=== PATIENT | female | born 1995 | race Caucasian/White ===

== ENCOUNTER → 2019-07-26 | Outpatient (CLI) | payer OTHER | LOC: LAB 12:36 | PROVIDERS: ATTEND Student in an Organized Health Care Education/Training Program | DX: N71.9 Inflammatory disease of uterus, unspecified (principal); N96 Recurrent pregnancy loss; N91.1 Secondary amenorrhea | CPT/HCPCS: 36415; 81240; 81241; 83036; 84443; 84702; 87070; 87077; 87205 ==

== ENCOUNTER → 2019-09-20 | Outpatient (CLI) | payer BC ==
[2019-09-20 15:51] LABS: ABSOLUTE EOSINOPHILS # (AUTO) 0.1 10^3/uL (0.0-0.6); ABSOLUTE LYMPHOCYTES (AUTO) 2.3 10^3/uL (0.5-4.7); ABSOLUTE MONOCYTES (AUTO) 0.6 10^3/uL (0.1-1.4); ABSOLUTE NEUT (AUTO) 6.6 10^3/uL (1.7-8.2); BASOPHILS % (AUTO) 0.3 % (0-2); EOSINOPHILS % (AUTO) 1.4 % (0-6); HEMATOCRIT 35.4 % (36.0-47.0); HEMOGLOBIN 12.5 g/dL (12.0-15.5); LYMPHOCYTES % (AUTO) 23.9 % (13-45); MEAN CORPUSCULAR HEMOGLOBIN 31.9 pg (27.0-33.4); MEAN CORPUSCULAR HGB CONC 35.3 g/dL (32.0-36.0); MEAN CORPUSCULAR VOLUME 90 fl (80-97); MONOCYTES % (AUTO) 6.2 % (3-13); PLATELET COUNT 239 10^3/uL (150-450); RED BLOOD COUNT 3.92 10^6/uL (3.72-5.28); RED CELL DISTRIBUTION WIDTH 12.8 % (11.5-14.0); SEGMENTED NEUTROPHILS % (AUTO) 68.2 % (42-78); TOTAL CELLS COUNTED % (AUTO) 100 %; WHITE BLOOD COUNT 9.7 10^3/uL (4.0-10.5)
== END ==
LOC: LAB 15:14
PROVIDERS: ATTEND Advanced Practice Midwife
DX: Z34.81 Encounter for supervision of other normal pregnancy, first trimester (principal); Z36.82 Encounter for antenatal screening for nuchal translucency
CPT/HCPCS: 36415; 83020; 84443; 85025; 86592; 86701; 86762; 86803; 86804; 86850; 86900; 86901; 87086; 87340; 88142

== ENCOUNTER 2020-03-01 00:23 | Outpatient (CLI) | payer BC ==
[2020-03-01 00:54] LABS: ABSOLUTE EOSINOPHILS # (AUTO) 0.1 10^3/uL (0.0-0.6); ABSOLUTE LYMPHOCYTES (AUTO) 2.8 10^3/uL (0.5-4.7); ABSOLUTE MONOCYTES (AUTO) 0.9 10^3/uL (0.1-1.4); ABSOLUTE NEUT (AUTO) 11.5 10^3/uL (1.7-8.2); BASOPHILS % (AUTO) 0.2 % (0-2); EOSINOPHILS % (AUTO) 0.7 % (0-6); HEMATOCRIT 37.1 % (36.0-47.0); HEMOGLOBIN 12.8 g/dL (12.0-15.5); LYMPHOCYTES % (AUTO) 18.4 % (13-45); MEAN CORPUSCULAR HEMOGLOBIN 32.6 pg (27.0-33.4); MEAN CORPUSCULAR HGB CONC 34.6 g/dL (32.0-36.0); MEAN CORPUSCULAR VOLUME 94 fl (80-97); MONOCYTES % (AUTO) 6.1 % (3-13); PLATELET COUNT 231 10^3/uL (150-450); RED BLOOD COUNT 3.94 10^6/uL (3.72-5.28); RED CELL DISTRIBUTION WIDTH 13.6 % (11.5-14.0); SEGMENTED NEUTROPHILS % (AUTO) 74.6 % (42-78); TOTAL CELLS COUNTED % (AUTO) 100 %; WHITE BLOOD COUNT 15.4 10^3/uL (4.0-10.5)
[2020-03-01 00:57] LABS: APPEARANCE,URINE CLEAR; BILIRUBIN,URINE NEGATIVE (NEGATIVE); COLOR,URINE COLORLESS; GLUCOSE, URINE NEGATIVE (NEGATIVE); KETONES,URINE NEGATIVE (NEGATIVE); LEUKOCYTE ESTERASE,URINE NEGATIVE (NEGATIVE); NITRITE,URINE NEGATIVE (NEGATIVE); PROTEIN,URINE NEGATIVE (NEGATIVE); URINE SPECIFIC GRAVITY 1.001; UROBILINOGEN,URINE NEGATIVE mg/dL (<2.0)
[2020-03-01 01:18] LABS: ALBUMIN 3.7 g/dL (3.5-5.0); ALKALINE PHOSPHATASE 124 U/L (38-126); ANION GAP 6 (5-19); ASPARTATE AMINO TRANSFERASE 22 U/L (14-36); BILIRUBIN,TOTAL 0.3 mg/dL (0.2-1.3); BLOOD UREA NITROGEN 5 mg/dL (7-20); CALCIUM 9.8 mg/dL (8.4-10.2); CARBON DIOXIDE 24 mmol/L (22-30); CHLORIDE 106 mmol/L (98-107); GLUCOSE 87 mg/dL (75-110); POTASSIUM 3.5 mmol/L (3.6-5.0); TOTAL PROTEIN 6.7 g/dL (6.3-8.2); URIC ACID 3.1 mg/dL (2.5-6.2)
[2020-03-01] MEDS ORDERED: BUTALB/ACETAMINOPHEN/CAFFEINE 1 TAB EACH ONE (01:22)
[2020-03-01] MEDS ORDERED: BUTALB/ACETAMINOPHEN/CAFFEINE 1 TAB EACH PO ONE (02:00)
[2020-03-01 02:04] LABS: UR PRO/CREAT RATIO RESULT 1.7 mg/mg (0.0-0.2); URINE CREATININE 9.8 mg/dL (16-327); URINE PROTEIN 16.6 mg/dL (<12)
--- NOTE | 2020-03-01 02:16 | Non Stress Test Report ---
Non Stress Test Datetime Report Generated by CPN: 03/01/2020 02:16 DEMOGRAPHIC EGA NST: 36.1 INDICATION Indication for Study (NST) Other: labor check MONITORING Monitor Explained: Monitor Explained; Test Explained; Patient Verbalized Understanding Time on Monitor: 03/01/2020 01:45 Time off Monitor: 03/01/2020 02:15 NST Duration: 30 NST INTERVENTIONS NST Interventions: PO Hydration; Reposition Patient Physician Notified NST: Dr. Bower BABY A: [id number] BABY A Movement : Present Contraction Frequency : none FHR Baseline : 125 Accelerations : 15X15 Decelerations : None Variability : Moderate 6-25bpm NST Review: Meets Criteria for Reactive NST NST Review and Verified By : SEBAS Reinoso Results: Reactive NST REPORT Report Trigger: Send Report
[2020-03-01 02:20] LABS: URINE AMPHETAMINES SCREEN NEGATIVE; URINE BARBITURATES SCREEN NEGATIVE; URINE BENZODIAZEPINES SCREEN NEGATIVE; URINE COCAINE SCREEN NEGATIVE; URINE MARIJUANA (THC) SCREEN NEGATIVE; URINE METHADONE SCREEN NEGATIVE; URINE PHENCYCLIDINE SCREEN NEGATIVE
== END 2020-03-01 02:32 | disposition home or self-care (01) ==
LOC: LC 00:23
PROVIDERS: ATTEND Student in an Organized Health Care Education/Training Program
DX: O16.3 Unspecified maternal hypertension, third trimester (principal); Z3A.36 36 weeks gestation of pregnancy
CPT/HCPCS: 36415; 59025; 80053; 80307; 81001; 82570; 83615; 84156; 84550; 85025; J3490

== ENCOUNTER 2020-03-02 08:24 | Outpatient (CLI) | payer BC ==
[2020-03-02 09:08] LABS: ABSOLUTE EOSINOPHILS # (AUTO) 0.1 10^3/uL (0.0-0.6); ABSOLUTE LYMPHOCYTES (AUTO) 1.8 10^3/uL (0.5-4.7); ABSOLUTE MONOCYTES (AUTO) 0.7 10^3/uL (0.1-1.4); BASOPHILS % (AUTO) 0.3 % (0-2); EOSINOPHILS % (AUTO) 0.7 % (0-6); HEMATOCRIT 37.1 % (36.0-47.0); HEMOGLOBIN 13.2 g/dL (12.0-15.5); LYMPHOCYTES % (AUTO) 15.3 % (13-45); MEAN CORPUSCULAR HEMOGLOBIN 32.7 pg (27.0-33.4); MEAN CORPUSCULAR HGB CONC 35.5 g/dL (32.0-36.0); MEAN CORPUSCULAR VOLUME 92 fl (80-97); MONOCYTES % (AUTO) 6.3 % (3-13); PLATELET COUNT 249 10^3/uL (150-450); RED BLOOD COUNT 4.02 10^6/uL (3.72-5.28); RED CELL DISTRIBUTION WIDTH 13.3 % (11.5-14.0); SEGMENTED NEUTROPHILS % (AUTO) 77.4 % (42-78); TOTAL CELLS COUNTED % (AUTO) 100 %; WHITE BLOOD COUNT 11.7 10^3/uL (4.0-10.5)
[2020-03-02 09:09] LABS: AMORPHOUS SEDIMENT,URINE TRACE /HPF; APPEARANCE,URINE CLOUDY; BILIRUBIN,URINE NEGATIVE (NEGATIVE); COLOR,URINE YELLOW; GLUCOSE, URINE NEGATIVE (NEGATIVE); KETONES,URINE NEGATIVE (NEGATIVE); LEUKOCYTE ESTERASE,URINE LARGE (NEGATIVE); NITRITE,URINE NEGATIVE (NEGATIVE); PROTEIN,URINE 30 mg/dL (NEGATIVE); URINE SPECIFIC GRAVITY 1.016; UROBILINOGEN,URINE NEGATIVE mg/dL (<2.0)
[2020-03-02 09:25] LABS: ALBUMIN 3.6 g/dL (3.5-5.0); ALKALINE PHOSPHATASE 134 U/L (38-126); ANION GAP 9 (5-19); ASPARTATE AMINO TRANSFERASE 23 U/L (14-36); BILIRUBIN,TOTAL 0.3 mg/dL (0.2-1.3); BLOOD UREA NITROGEN 6 mg/dL (7-20); CALCIUM 9.3 mg/dL (8.4-10.2); CARBON DIOXIDE 20 mmol/L (22-30); CHLORIDE 106 mmol/L (98-107); GLUCOSE 86 mg/dL (75-110); POTASSIUM 3.8 mmol/L (3.6-5.0); TOTAL PROTEIN 6.6 g/dL (6.3-8.2); URIC ACID 4.5 mg/dL (2.5-6.2)
[2020-03-02 09:26] LABS: 24 HOUR URINE PROTEIN RESULT 685 mg/day (42-225); URINE PROTEIN 15.7 mg/dL (<12)
[2020-03-02 09:30] LABS: URINE AMPHETAMINES SCREEN NEGATIVE; URINE BARBITURATES SCREEN NEGATIVE; URINE BENZODIAZEPINES SCREEN NEGATIVE; URINE COCAINE SCREEN NEGATIVE; URINE MARIJUANA (THC) SCREEN NEGATIVE; URINE METHADONE SCREEN NEGATIVE; URINE PHENCYCLIDINE SCREEN NEGATIVE
[2020-03-02 09:35] LABS: UR PRO/CREAT RATIO RESULT 0.1 mg/mg (0.0-0.2); URINE CREATININE 192.6 mg/dL (16-327); URINE PROTEIN 18.7 mg/dL (<12)
--- NOTE | 2020-03-02 09:50 | Non Stress Test Report ---
Non Stress Test Datetime Report Generated by CPN: 03/02/2020 09:50 DEMOGRAPHIC Test Number: 2 EGA NST: 36.2 MONITORING Monitor Explained: Monitor Explained; Test Explained; Patient Verbalized Understanding Time on Monitor: 03/02/2020 08:36 Time off Monitor: 03/02/2020 09:12 NST Duration: 36 NST INTERVENTIONS NST Interventions: PO Hydration; Reposition Patient Physician Notified NST: Dr. Daley BABY A: [id number] BABY A Movement : Present Contraction Frequency : irregular FHR Baseline : 135 Accelerations : 15X15 Decelerations : None Variability : Moderate 6-25bpm NST Review: Meets Criteria for Reactive NST NST Review and Verified By : TMartin,RN NST Results: Reactive NST REPORT Report Trigger: Send Report
== END 2020-03-02 09:50 | disposition home or self-care (01) ==
LOC: LC 08:24
PROVIDERS: ATTEND Obstetrics & Gynecology Gynecology
DX: O16.3 Unspecified maternal hypertension, third trimester (principal); Z3A.36 36 weeks gestation of pregnancy
CPT/HCPCS: 36415; 59025; 80053; 80307; 81001; 82570; 83615; 84156; 84550; 85025

== ENCOUNTER 2020-03-19 18:06 | Inpatient (IN) | payer BC ==
[2020-03-19] MEDS ORDERED: DINOPROSTONE 10 MG VAGINAL INSERT.SR PV PRN (18:16)
[2020-03-19] MEDS ORDERED: PENICILLIN G POTASSIUM 5,000,000 UNIT in DEXTROSE 5%-WATER 100 ML IV ONE (18:16)
[2020-03-19] MEDS: RINGERS SOLUTION,LACTATED 1,000 ML IV PRN (18:28)
[2020-03-19] MEDS ORDERED: OXYTOCIN 10 UNIT/ML VIAL ONE (18:39)
[2020-03-19] MEDS ORDERED: OXYTOCIN/NORMAL SALINE 20 UNIT/1,000 ML RTUINJ ONE (18:39)
[2020-03-19] MEDS ORDERED: MISOPROSTOL 0.2 MG TABLET ONE (18:39)
[2020-03-19] MEDS ORDERED: LIDOCAINE 1% INJ-PF (10 MG/ML) 30 ML SDV ONE (18:39)
[2020-03-19] MEDS ORDERED: DINOPROSTONE 10 MG VAGINAL INSERT.SR ONE (18:39)
[2020-03-19 19:00] LABS: ABSOLUTE EOSINOPHILS # (AUTO) 0.1 10^3/uL (0.0-0.6); ABSOLUTE MONOCYTES (AUTO) 0.8 10^3/uL (0.1-1.4); ABSOLUTE NEUT (AUTO) 9.7 10^3/uL (1.7-8.2); BASOPHILS % (AUTO) 0.4 % (0-2); EOSINOPHILS % (AUTO) 0.4 % (0-6); HEMATOCRIT 36.7 % (36.0-47.0); HEMOGLOBIN 12.8 g/dL (12.0-15.5); LYMPHOCYTES % (AUTO) 15.9 % (13-45); MEAN CORPUSCULAR HEMOGLOBIN 32.5 pg (27.0-33.4); MEAN CORPUSCULAR HGB CONC 34.8 g/dL (32.0-36.0); MEAN CORPUSCULAR VOLUME 93 fl (80-97); PLATELET COUNT 225 10^3/uL (150-450); RED BLOOD COUNT 3.94 10^6/uL (3.72-5.28); RED CELL DISTRIBUTION WIDTH 13.8 % (11.5-14.0); SEGMENTED NEUTROPHILS % (AUTO) 77.3 % (42-78); TOTAL CELLS COUNTED % (AUTO) 100 %; WHITE BLOOD COUNT 12.6 10^3/uL (4.0-10.5)
[2020-03-19 19:04] LABS: APPEARANCE,URINE SLIGHTLY-CLOUDY; BILIRUBIN,URINE NEGATIVE (NEGATIVE); COLOR,URINE STRAW; GLUCOSE, URINE NEGATIVE (NEGATIVE); KETONES,URINE NEGATIVE (NEGATIVE); LEUKOCYTE ESTERASE,URINE TRACE (NEGATIVE); NITRITE,URINE NEGATIVE (NEGATIVE); PROTEIN,URINE NEGATIVE (NEGATIVE); URINE SPECIFIC GRAVITY 1.003; UROBILINOGEN,URINE NEGATIVE mg/dL (<2.0)
[2020-03-19 19:20] LABS: URINE AMPHETAMINES SCREEN NEGATIVE; URINE BARBITURATES SCREEN NEGATIVE; URINE BENZODIAZEPINES SCREEN NEGATIVE; URINE COCAINE SCREEN NEGATIVE; URINE MARIJUANA (THC) SCREEN NEGATIVE; URINE METHADONE SCREEN NEGATIVE; URINE PHENCYCLIDINE SCREEN NEGATIVE
[2020-03-19] MEDS ORDERED: ACETAMINOPHEN 325 MG TABLET ONE (19:46)
[2020-03-19] MEDS ORDERED: ACETAMINOPHEN 325 MG TABLET PO ONE (19:49)
[2020-03-19] MEDS ORDERED: PENICILLIN G POTASSIUM 2,500,000 UNIT in DEXTROSE 5%-WATER 50 ML IV SCH (22:30)
[2020-03-20] MEDS ORDERED: MISOPROSTOL 0.1 MG TABLET ONE (08:18)
[2020-03-20] MEDS ORDERED: MISOPROSTOL 0.2 MG TABLET PV ONE ×2 (08:19→08:22)
[2020-03-20] MEDS ORDERED: TERBUTALINE SULFATE INJ/PF 1 MG/1 ML SDV ONE (09:28)
[2020-03-20] MEDS ORDERED: TERBUTALINE SULFATE INJ/PF 1 MG/1 ML SDV SUBCUT ONE (09:28)
--- NOTE | 2020-03-20 10:30 | Admission Physical ---
Datetime Report Generated by CPN: 03/20/2020 10:29 CURRENT ADMISSION Hx Assessment: The History has been Reviewed and is Current Chief Complaint: Scheduled Induction of Labor Indication for Induction: IUGR Admit Impression : Term, Intrauterine Admit Plan: Admit to Unit; Initiate Labor Induction Protocol ALLERGIES Medication Allergies: Yes Medication Allergies: Sulfa (Sulfonamide Antibiotics)/SV/Anaphylaxis (03/19/2020) Latex: No Latex Allergies Food Allergies: none Environmental Allergies: none OBSTETRICAL HISTORY EDC: 03/28/2020 00:00 : 3 Para: 0 SAB: 2 Gestational Diabetes: No Rh Sensitization: No Incompetent Cervix: No ELLIOT: No Infertility: No ART Treatment: No Uterine Anomaly: No IUGR: No Hx Previous C/S: No Macrosomia: No Hx Loss/Stillborn: No PIH: No Hx : No Placenta Previa/Abruption: No Depression/PP Depression: No PTL/PROM: No Post Hemorrhage: No Current Procedures: Ultrasound; NST Obstetrical History Comments: G1 - early SAB G2 - early SAB G3 - current; IUGR SEE RECORDS Alcohol: No Marijuana : No Cocaine: No Other Illicit Drugs: No Cigarettes: Never Smoker. [id number] MEDICAL HISTORY Diabetes: No Blood Transfusion: No Pulmonary Disease (Asthma, TB): No Breast Disease: No Hypertension: No Plastic Design Applier Surgery: No Heart Disease: No Hosp/Surgery: Yes Autoimmune Disorder: No Anesthetic Complications: No Kidney Disease: No Abnormal Pap Smear: No Neuro/Epilepsy: No Psychiatric Disorders: No Other Medical Diseases: No Hepatitis/Liver Disease: No Significant Family History: No Varicosities/Phlebitis: No Trauma/Violence : No Thyroid Dysfunction: No Medical History Comments: tonsillectomy, shoulder surgery, wisdom teeth INFECTIOUS HISTORY Gonorrhea: No Genital Herpes: No Chlamydia: No Tuberculosis: No Syphilis: No Hepatitis: No HIV/AIDS Exposure: No Rash or Viral Illness: No HPV: No PHYSICAL EXAM General: Normal Heart: Normal Abdomen: Normal Extremities: Normal Pelvic Type: Adequate Vital Signs: Reviewed; Within Normal Limits MEMBRANES Membranes: Intact FETUS A EGA: 38.6 Monitoring: External US FHR Category: Category I FHR Comments: Cat I this am followed by prolonged decel after cytotec which was resolved with position changes, fluid bolus, oxygen and terbutaline SQ an dnow back to Cat I tracing Presentation: Vertex Admit Comment: 24yo G3PO at 38w6d admitted into L_D last night for IOL secondary to IUGR. Pt is O pos, RI, GBS positive. Medical hx signficant for Heterozygous Factory 5 Leiden with no hx of DVTs for which she is to receive Lovenox for 6weeks . Pt had cervidil last night followed by cytotec this am. Pt with tachysystole after cytotec and so terbutaline was given as stated above. Plan is to continue to monitor, reasses for possible cook's catheter placement at 4hrs from cytotec (1230). Dr. Bower is the OB ribbon sweatband operator and aware of patient status. PLANS FOR LABOR AND DELIVERY Labor and Delivery: Plan Pain Management: Natural Feeding Preference: Breast Circumcision: N/A INFORMED CONSENT Assignment: Mallory Bower MD Signature: with User ID: [email or web address] : with User ID: [email or web address]
[2020-03-20] MEDS: RINGERS SOLUTION,LACTATED 1,000 ML IV PRN (14:15)
[2020-03-20] MEDS ORDERED: PENICILLIN G-K 5 MILLION UNIT VIAL ONE (17:27)
[2020-03-20] MEDS ORDERED: EPHEDRINE SULFATE INJ 50 MG/1 ML AMPULE ONE (17:34)
[2020-03-20] MEDS ORDERED: FENTANYL/BUPIVACAINE/NS/PF 300 MCG/150 ML RTUINJ EPI ONE (17:35)
[2020-03-20] MEDS ORDERED: BUPIVACAINE HCL 0.25 % INJ/PF (2.5 MG/1 ML) 30 ML VIAL ONE (17:35)
--- NOTE | 2020-03-20 20:29 | Warning Signs in Babies ---
VOD Warning Signs Datetime Report Generated by [facility]: 03/20/2020 20:29 VOD#608 -Warning Signs in Babies: Needs to be viewed. (03/01/2020 00:25:Alyssa Coulter RN)
[2020-03-20] MEDS ORDERED: DIBUCAINE 1% OINTMENT 28 GM TP PRN (20:32)
[2020-03-20] MEDS ORDERED: MAGNESIUM HYDROXIDE SUSP 30 ML UDCUP PO PRN (20:32)
[2020-03-20] MEDS ORDERED: PROMETHAZINE HCL 25 MG TABLET PO PRN (20:32)
[2020-03-20] MEDS ORDERED: PROMETHAZINE HCL INJ 25 MG/1 ML VIAL IV PRN (20:32)
[2020-03-20] MEDS ORDERED: ACETAMINOPHEN WITH CODEINE #3 TABLET PO PRN ×2 (20:32)
[2020-03-20] MEDS ORDERED: PROMETHAZINE HCL 25 MG SUPP.RECT PR PRN (20:32)
[2020-03-20] MEDS ORDERED: DIPHENHYDRAMINE HCL 25 MG CAPSULE PO PRN (20:32)
[2020-03-20] MEDS ORDERED: ACETAMINOPHEN 325 MG TABLET PO PRN (20:32)
[2020-03-20] MEDS ORDERED: DIPH/PERTUSS(ACELL)/TETANUS VAC/PF 0.5 ML SYR (>=10YO) IM PRN (20:32)
[2020-03-20] MEDS ORDERED: MEASLES,MUMPS&RUBELLA VACC/PF 0.5 ML VIAL SUBCUT PRN (20:32)
[2020-03-20] MEDS ORDERED: NA PHOS,M-B/NA PHOS,DI-BA (ADULT) 133 ML ENEMA PR PRN (20:32)
[2020-03-20] MEDS ORDERED: BENZOCAINE/MENTHOL AEROSOL SPRAY 56 ML TOP PRN (20:32)
[2020-03-20] MEDS ORDERED: ZOLPIDEM TARTRATE 5 MG TABLET PO PRN (20:32)
[2020-03-20] MEDS ORDERED: PSEUDOEPHEDRINE HCL 30 MG TABLET PO PRN (20:32)
[2020-03-20] MEDS ORDERED: OXYTOCIN/NORMAL SALINE 20 UNIT/1,000 ML RTUINJ IV PRN (20:32)
[2020-03-20] MEDS ORDERED: GLYCERIN/WITCH HAZEL LEAF 1 EACH MED..WIPE TP PRN (20:32)
--- NOTE | 2020-03-20 21:07 | Delivery Summary ---
Del Sum A-C Datetime Report Generated by CPN: 03/20/2020 21:06 DELIVERY PERSONNEL DELIVERY PERSONNEL: [id number] Delivery Doctor:: Mallory Bower MD Labor and Delivery Nurse:: Arely Cruz RNnatural gas trader Nurse:: Unique Chaney RN Nursery Nurse:: Sneha Bailey RN Nursery Nurse:: SEBAS Meraz Tour Production Supervisor/MELT HOUSE CENTRIFUGAL OPERATOR: Ana Griggs CST Tour Production Supervisor/MELT HOUSE CENTRIFUGAL OPERATOR: Geraldine Buorgeois CST Additional Personnel: : Daphney Ortiz RNC MATERNAL INFORMATION Delivery Anesthesia: Epidural Medications After Delivery: Pitocin Drip 20 Units/1000ml NSS Estimated Blood Loss (ml): 50 Delivery QBL: 50 Maternal Complications: None Provider Comments: Repetitive decelerations to 70-80s and c/c/+3. Patient consented for VAVD due to NFHRTs and patient and agreed. Vacuum placed and activated to green zone. Maternal expulsive efforts appropriate and one pop off. Vacuum applied 4 times with only one pop off. baby to +4 and then delivered with patients own maternal efforts. VFI delivered in GONZALO presentation. No nuchal cord. Placenta delivered intact spontaneously. FF at U. 1st degree perineal laceration repaired with good hemostasis. Mother and baby stable upon provider leaving the room. Reviewed again with patient Factor V HZ and discussion with SEMOC dr. Gutiérrez that would recommend Anticoag for 6 weeks pp and due to this c/b IUGR and Factor V HZ would recommend next Anticoag during and pp. Patient verbalized understanding. LABOR SUMMARY EDC: 03/28/2020 00:00 No. Babies in Womb: 1 Attempted: No Labor Anesthesia: Epidural LABOR INFORMATION Reason for Induction: Intrauterine Growth Retardation Onset of Labor: 03/20/2020 11:26 Complete Dilatation: 03/20/2020 18:44 Cervical Ripening Agents: Cervidil; [place] Ball[place]; Cytotec @ Oxytocin: N/A Group B Beta Strep: positive Antibiotics # of Doses: 1 Antibiotics Time of Last Dose: 1732 Name of Antibiotic Given: Penicillin Steroids Given: None Reason Steroids Not Administered: Not Applicable MEMBRANES Membranes Rupture Method: Artificial Rupture of Membranes: 03/20/2020 17:07 Length of Rupture (hr): 2.43 Amniotic Fluid Color: Clear Amniotic Fluid Amount: Copious Amniotic Fluid Odor: None STAGES OF LABOR Stage 1 hr: 7 Stage 1 min: 18 Stage 2 hr: 0 Stage 2 min: 49 Stage 3 hr: 0 Stage 3 min: 5 Total Time in Labor hr: 8 Total Time in Labor min: 12 VAGINAL DELIVERY Episiotomy: None Laceration #1: Perineal Laceration Extension #1: First Degree Laceration Repair: Yes Laceration Repair Note: 1st degree ML perineal laceration repaired with good hemostasis. Sponge Count Correct: Yes Sharps Count Correct: Yes CSECTION DELIVERY Primary Indication: N/A Secondary Indication: N/A CSection Incidence: N/A Labor: N/A Elective: N/A CSection Incision: N/A BABY A INFORMATION Infant Delivery Date/Time: 03/20/2020 19:33 Method of Delivery: Vaginal Nurse Controlled Delivery: No Born in Route : No : N/A Forceps: N/A Vacuum Extraction: N/A Shoulder Dystocia : No PRESENTATION/POSITION BABY A Presentation: Cephalic Cephalic Presentation: Vertex Vertex Position: Left Occipital Anterior Breech Presentation: N/A PLACENTA INFORMATION BABY A Placenta Delivery Time : 03/20/2020 19:38 Placenta Method of Delivery: Spontaneous Placenta Status: Delivered SCORES BABY A Heart Rate 1 min: >100 bpm Resp Effort 1 min: Good Cry Reflex Irritability 1 min: Cough or Sneeze or Pulls Away Muscle Tone 1 min: Some Flexion of Extremities Color 1 min: Blue/Pale SCORE 1 MIN: 7 Heart Rate 5 min: >100 bpm Resp Effort 5 min: Good Cry Reflex Irritability 5 min: Cough or Sneeze or Pulls Away Muscle Tone 5 min: Active Motion Color 5 min: Body [place], Extremities Blue SCORE 5 MIN: 9 INFORMATION BABY A Gestational Age at Delivery: 38.6 Gestational Status: Early Term- 37- 38.6 Weeks Outcome : Liveborn Condition : Stable Infant Sex: Female IDENTIFICATION BABY A Verification Date/Time: 03/20/2020 20:04 ID Band Number: [id number] Mother's Name Verified: Yes RN Verifying Infant: Dian Coulter RN Additional Verifying Personnel: Farideh RN WEIGHT/LENGTH BABY A Infant Birthweight (gm): 2790 Infant Weight (lb): 6 Weight (oz): 2 Length (in): 19.00 Infant Length (cm): 48.26 CORD INFORMATION BABY A No. Cord Vessels: 3 Nuchal Cord : N/A Cord Blood Taken: Yes-For Storage (Mom's Blood type +) Suction: Mouth ASSESSMENT BABY A Skin to Skin: Yes Skin to Skin Time (min): 20 BABY B INFORMATION : N/A SIGNATURES Signature: with User ID: [email or web address]
[2020-03-20] MEDS ORDERED: PENICILLIN G POTASSIUM 2,500,000 UNIT in DEXTROSE 5%-WATER 50 ML IV SCH ×2 (21:30→21:33)
[2020-03-20] MEDS ORDERED: IBUPROFEN 800 MG TABLET ONE (23:04)
[2020-03-20] MEDS: IBUPROFEN 800 MG TABLET PO SCH (23:09)
[2020-03-20] MEDS: FAMOTIDINE 20 MG TABLET PO SCH (23:24)
[2020-03-21] MEDS: IBUPROFEN 800 MG TABLET PO SCH ×3 (05:41→21:31)
[2020-03-21 06:36] LABS: HEMATOCRIT 33.2 % (36.0-47.0); HEMOGLOBIN 11.6 g/dL (12.0-15.5); MEAN CORPUSCULAR HEMOGLOBIN 32.9 pg (27.0-33.4); MEAN CORPUSCULAR VOLUME 94 fl (80-97); PLATELET COUNT 184 10^3/uL (150-450); RED BLOOD COUNT 3.52 10^6/uL (3.72-5.28); RED CELL DISTRIBUTION WIDTH 13.8 % (11.5-14.0); WHITE BLOOD COUNT 17.7 10^3/uL (4.0-10.5)
[2020-03-21] MEDS: SENNOSIDES/DOCUSATE 8.6-50 MG 1 EACH TABLET PO SCH (09:23)
[2020-03-21] MEDS: FAMOTIDINE 20 MG TABLET PO SCH ×2 (09:23→21:31)
[2020-03-21] MEDS: DOCUSATE SODIUM 100 MG CAPSULE PO SCH ×2 (09:23→17:24)
[2020-03-21] MEDS: FERROUS SULFATE 325 MG TABLET PO SCH ×2 (09:23→17:24)
[2020-03-21] MEDS: PRENATAL VITAMIN W DHA CAPSULE PO SCH (09:23)
[2020-03-21] MEDS: ENOXAPARIN SODIUM INJ 40 MG/0.4 ML DISP.SYRIN SUBCUT SCH (09:23)
--- NOTE | 2020-03-21 12:02 | PDOC PROGRESS REPORT ---
Subjective-OB Progress Note for:: 03/21/20 Subjective: doing well, no complaints. She reports light bleeding, reg diet and voiding without difficulty. Physical Exam (OB) Vital Signs: Temp Pulse Resp BP Pulse Ox 97.8 F 54 L 16 116/85 98 03/21/20 07:41 03/21/20 07:41 03/21/20 07:41 03/21/20 07:41 03/21/20 07:41 Intake & Output 03/20/20 03/21/20 03/22/20 06:59 06:59 06:59 Intake Total 1000 400 Balance 1000 400 Weight 79.2 kg - PIH/Pre-Eclampsia DTR's: 1 + Clonus: Negative Headache: Absent Epigastric Pain: No Visual Changes: No - Lochia Lochia Amount: Small 10-25 ml Lochia Color: Rubra/Red - Abdomen Description: Soft, Round Hernia Present: No Fundal Description: Firm, Midline Fundal Height: u/u - u/2 Objective-Diagnostic Laboratory: 03/21/20 06:18 03/21/20 06:18 WBC 17.7 H RBC 3.52 L Hgb 11.6 L Hct 33.2 L MCV 94 MCH 32.9 MCHC 35.0 RDW 13.8 Plt Count 184 Assessment and Plan(PN) - Assessment and Plan (1) Encounter for induction of labor Is this a current diagnosis for this admission?: Yes (2) Heterozygous factor V Leiden affecting in third trimester, antepartum Is this a current diagnosis for this admission?: Yes (3) Vacuum-assisted vaginal delivery Is this a current diagnosis for this admission?: Yes - Time Spent with Patient Time with patient: Less than 15 minutes Medications reviewed and adjusted accordingly: Yes - Disposition Anticipated Discharge: Home Within: within 24 hours
[2020-03-22] MEDS: IBUPROFEN 800 MG TABLET PO SCH ×2 (06:13→13:46)
[2020-03-22 08:16] VITALS: BP 126/77
[2020-03-22] MEDS: DOCUSATE SODIUM 100 MG CAPSULE PO SCH ×2 (09:17→17:21)
[2020-03-22] MEDS: FAMOTIDINE 20 MG TABLET PO SCH (09:17)
[2020-03-22] MEDS: FERROUS SULFATE 325 MG TABLET PO SCH ×2 (09:17→17:21)
[2020-03-22] MEDS: PRENATAL VITAMIN W DHA CAPSULE PO SCH (09:17)
[2020-03-22] MEDS: SENNOSIDES/DOCUSATE 8.6-50 MG 1 EACH TABLET PO SCH (09:18)
[2020-03-22] MEDS: ENOXAPARIN SODIUM INJ 40 MG/0.4 ML DISP.SYRIN SUBCUT SCH (09:21)
--- NOTE | 2020-03-22 12:52 | PDOC DISCHARGE SUMMARY ---
Impression - Admit/DC Date/PCP Admission Date/Primary Care Provider: 03/19/20 18:06 CARLYLE BETH MD Discharge Date: 03/22/20 - Discharge Diagnosis (1) Encounter for induction of labor Is this a current diagnosis for this admission?: Yes (2) Heterozygous factor V Leiden affecting in third trimester, antepartum Is this a current diagnosis for this admission?: Yes (3) Vacuum-assisted vaginal delivery Is this a current diagnosis for this admission?: Yes (4) IUGR (intrauterine growth restriction) affecting care of mother Is this a current diagnosis for this admission?: Yes - Additional Information Discharge Diet: Regular Discharge Activity: Balance Activity w/Rest, Pelvic Rest Referrals: CARLYLE BETH MD [Primary Care Provider] - Prescriptions: Alcohol Antiseptic Pads [Alcohol Prep Pad] 1 each TP DAILY #60 med..pad Enoxaparin Sodium [Lovenox Inj 40 mg/0.4 ml Disp.syrin] 40 mg SUBCUT DAILY #42 disp.syrin Ibuprofen [Motrin 800 mg Tablet] 800 mg PO Q8HP PRN #60 tablet PRN Reason: Home Medications: Prenat 115/Iron Fum/Folic/Dss [ 19 Tablet] 1 each PO DAILY 03/01/20 Alcohol Antiseptic Pads [Alcohol Prep Pad] 1 each TP DAILY #60 med..pad 03/22/20 Enoxaparin Sodium [Lovenox Inj 40 mg/0.4 ml Disp.syrin] 40 mg SUBCUT DAILY #42 disp.syrin 03/22/20 Ibuprofen [Motrin 800 mg Tablet] 800 mg PO Q8HP PRN #60 tablet 03/22/20 Results Laboratory Results: WBC 17.7 10^3/uL (4.0-10.5) H 03/21/20 06:18 RBC 3.52 10^6/uL (3.72-5.28) L 03/21/20 06:18 Hgb 11.6 g/dL (12.0-15.5) L 03/21/20 06:18 Hct 33.2 % (36.0-47.0) L 03/21/20 06:18 MCV 94 fl (80-97) 03/21/20 06:18 MCH 32.9 pg (27.0-33.4) 03/21/20 06:18 MCHC 35.0 g/dL (32.0-36.0) 03/21/20 06:18 RDW 13.8 % (11.5-14.0) 03/21/20 06:18 Plt Count 184 10^3/uL (150-450) 03/21/20 06:18 Lymph % (Auto) 15.9 % (13-45) 03/19/20 18:46 [place] % (Auto) 6.0 % (3-13) 03/19/20 18:46 Eos % (Auto) 0.4 % (0-6) 03/19/20 18:46 Baso % (Auto) 0.4 % (0-2) 03/19/20 18:46 Absolute Neuts (auto) 9.7 10^3/uL (1.7-8.2) H 03/19/20 18:46 Absolute Lymphs (auto) 2.0 10^3/uL (0.5-4.7) 03/19/20 18:46 Absolute Monos (auto) 0.8 10^3/uL (0.1-1.4) 03/19/20 18:46 Absolute Eos (auto) 0.1 10^3/uL (0.0-0.6) 03/19/20 18:46 Absolute Basos (auto) 0.0 10^3/uL (0.0-0.2) 03/19/20 18:46 Seg Neutrophils % 77.3 % (42-78) 03/19/20 18:46 Urine Color STRAW 03/19/20 18:15 Urine Appearance SLIGHTLY-CLOUDY 03/19/20 18:15 Urine pH 7.0 (5.0-9.0) 03/19/20 18:15 Ur Specific [place] 1.003 03/19/20 18:15 Urine Protein NEGATIVE mg/dL (NEGATIVE) 03/19/20 18:15 Urine Glucose (UA) NEGATIVE mg/dL (NEGATIVE) 03/19/20 18:15 Urine Ketones NEGATIVE mg/dL (NEGATIVE) 03/19/20 18:15 Urine Blood NEGATIVE (NEGATIVE) 03/19/20 18:15 Urine Nitrite NEGATIVE (NEGATIVE) 03/19/20 18:15 Urine Bilirubin NEGATIVE (NEGATIVE) 03/19/20 18:15 Urine Urobilinogen NEGATIVE mg/dL (<2.0) 03/19/20 18:15 Ur Leukocyte Esterase TRACE (NEGATIVE) H 03/19/20 18:15 Urine Ascorbic Acid NEGATIVE (NEGATIVE) 03/19/20 18:15 Urine Opiates Screen NEGATIVE 03/19/20 18:15 Urine Methadone Screen NEGATIVE 03/19/20 18:15 Ur Barbiturates Screen NEGATIVE 03/19/20 18:15 Ur Phencyclidine Scrn NEGATIVE 03/19/20 18:15 Ur Amphetamines Screen NEGATIVE 03/19/20 18:15 U Benzodiazepines Scrn NEGATIVE 03/19/20 18:15 Urine Cocaine Screen NEGATIVE 03/19/20 18:15 U Marijuana (THC) Screen NEGATIVE 03/19/20 18:15 RPR NONREACTIVE (NONREACTIVE) 03/19/20 18:46 Blood Type O POSITIVE 03/19/20 18:46 Antibody Screen NEGATIVE 03/19/20 18:46 Plan Plan of Treatment: follow up in 4 weeks at [facility] for post check
== END 2020-03-22 17:53 | disposition home or self-care (01) | DRG 806 ==
LOC: LR 18:06 → 2S 03-20 23:20
PROVIDERS: ADMIT Obstetrics & Gynecology; ATTEND Obstetrics & Gynecology
PROC: 10D07Z6 Extraction of Products of Conception, Vacuum, Via Natural or Artificial Opening (ICD-10-PCS; principal; 2020-03-20)
PROC: 0HQ9XZZ Repair Perineum Skin, External Approach (ICD-10-PCS; 2020-03-20)
PROC: 3E0P7VZ Introduction of Hormone into Female Reproductive, Via Natural or Artificial Opening (ICD-10-PCS; 2020-03-20)
DX: O36.5930 Maternal care for other known or suspected poor fetal growth, third trimester, not applicable or unspecified (principal); O99.12 Other diseases of the blood and blood-forming organs and certain disorders involving the immune mechanism complicating childbirth; Z37.0 Single live birth; D68.51 Activated protein C resistance; O99.824 Streptococcus B carrier state complicating childbirth; O76 Abnormality in fetal heart rate and rhythm complicating labor and delivery; Z88.2 Allergy status to sulfonamides; Z3A.38 38 weeks gestation of pregnancy
CPT/HCPCS: 1967; 36415; 80307; 81005; 85025; 85027; 86592; 86850; 86900; 86901; 88307; 94760; J1650; J2540; J2590; J3010; J3105; J3490; J7060

== ENCOUNTER 2020-04-09 10:14 | Emergency (ER) | payer BC ==
--- NOTE | 2020-04-09 10:31 | ER Document Report ---
ED Medical Screen (RME) - General Chief Complaint: Leg Swelling Stated Complaint: LEG SWELLING Time Seen by Provider: 04/09/20 10:19 Primary Care Provider: KARLOS GUZMAN MD [Primary Care Provider] - Follow up as needed Mode of Arrival: Ambulatory Information source: Patient Notes: 24-year-old female presented to ED to rule out allergy to Lovenox. Patient was started with Lovenox on March 21 after she gave on March 20. She has had leg cramps rash dizziness and weakness since starting on the Lovenox. Patient is alert oriented respirations regular and unlabored speaking in full sentences walks with even steady gait. I have greeted and performed a rapid initial assessment of this patient. A comprehensive ED assessment and evaluation of the patient, analysis of test results and completion of medical decision making process will be conducted by an additional ED providers. TRAVEL OUTSIDE OF THE [place] IN LAST 30 DAYS: No - Related Data Allergies/Adverse Reactions: Sulfa (Sulfonamide Antibiotics) Allergy (Severe, Verified 03/19/20 18:17) Anaphylaxis Past Medical History Psychiatric Medical History: Denies: Hx Depression Physical Exam - Vital signs Vitals: Temp Pulse Resp BP Pulse Ox 98.4 F 88 16 126/88 H 98 04/09/20 10:18 04/09/20 10:18 04/09/20 10:18 04/09/20 10:18 04/09/20 10:18 Course - Vital Signs Vital signs: Temp Pulse Resp BP Pulse Ox 98.4 F 88 16 126/88 H 98 04/09/20 10:18 04/09/20 10:18 04/09/20 10:18 04/09/20 10:18 04/09/20 10:18 Doctor's Discharge - Discharge Referrals: KARLOS GUZMAN MD [Primary Care Provider] - Follow up as needed
[2020-04-09 10:53] LABS: ABSOLUTE EOSINOPHILS # (AUTO) 0.2 10^3/uL (0.0-0.6); ABSOLUTE LYMPHOCYTES (AUTO) 1.8 10^3/uL (0.5-4.7); ABSOLUTE MONOCYTES (AUTO) 0.3 10^3/uL (0.1-1.4); BASOPHILS % (AUTO) 0.5 % (0-2); EOSINOPHILS % (AUTO) 1.8 % (0-6); HEMATOCRIT 40.8 % (36.0-47.0); HEMOGLOBIN 14.4 g/dL (12.0-15.5); LYMPHOCYTES % (AUTO) 21.7 % (13-45); MEAN CORPUSCULAR HEMOGLOBIN 32.7 pg (27.0-33.4); MEAN CORPUSCULAR HGB CONC 35.4 g/dL (32.0-36.0); MEAN CORPUSCULAR VOLUME 93 fl (80-97); MONOCYTES % (AUTO) 4.2 % (3-13); PLATELET COUNT 286 10^3/uL (150-450); RED BLOOD COUNT 4.41 10^6/uL (3.72-5.28); SEGMENTED NEUTROPHILS % (AUTO) 71.8 % (42-78); TOTAL CELLS COUNTED % (AUTO) 100 %; WHITE BLOOD COUNT 8.3 10^3/uL (4.0-10.5)
[2020-04-09 11:06] LABS: APPEARANCE,URINE CLEAR; BILIRUBIN,URINE NEGATIVE (NEGATIVE); COLOR,URINE COLORLESS; GLUCOSE, URINE NEGATIVE (NEGATIVE); KETONES,URINE NEGATIVE (NEGATIVE); LEUKOCYTE ESTERASE,URINE SMALL (NEGATIVE); NITRITE,URINE NEGATIVE (NEGATIVE); PROTEIN,URINE NEGATIVE (NEGATIVE); URINE SPECIFIC GRAVITY 1.001; UROBILINOGEN,URINE NEGATIVE mg/dL (<2.0)
[2020-04-09 11:20] LABS: ALBUMIN 4.5 g/dL (3.5-5.0); ALKALINE PHOSPHATASE 88 U/L (38-126); ANION GAP 9 (5-19); ASPARTATE AMINO TRANSFERASE 43 U/L (14-36); BILIRUBIN,TOTAL 0.5 mg/dL (0.2-1.3); BLOOD UREA NITROGEN 9 mg/dL (7-20); CALCIUM 10.6 mg/dL (8.4-10.2); CARBON DIOXIDE 28 mmol/L (22-30); CHLORIDE 102 mmol/L (98-107); GLUCOSE 92 mg/dL (75-110); PHOSPHORUS 4.1 mg/dL (2.5-4.5); POTASSIUM 3.9 mmol/L (3.6-5.0); TOTAL PROTEIN 7.6 g/dL (6.3-8.2)
--- NOTE | 2020-04-09 11:45 | ER Document Report ---
ED Extremity Problem, Lower - General Chief Complaint: Leg Pain Stated Complaint: LEG SWELLING Time Seen by Provider: 04/09/20 10:19 Primary Care Provider: KARLOS GUZMAN MD [ACTIVE STAFF] - Follow up as needed Mode of Arrival: Ambulatory Notes: 24-year-old female presenting today with right lower extremity pain and swelling x 5 days. Had a vaginal delivery 2 weeks ago. Has a hx of factor x deficiency and was prescribed Lovenox for 6 weeks after delivery, has been taking medication as prescribed by her COLLECTIONS OFFICER. Called her OB this morning who referred her to the ER due to right leg pain and swelling. She reports that she went on a 3 mile walk this morning and she noticed extreme leg weakness. Denies any chest pain or shortness of breath. TRAVEL OUTSIDE OF THE [place] IN LAST 30 DAYS: No - Related Data Allergies/Adverse Reactions: Sulfa (Sulfonamide Antibiotics) Allergy (Severe, Verified 03/19/20 18:17) Anaphylaxis Home Medications: PNV, lovenox Past Medical History - General Information source: Patient - Social History Smoking Status: Never Smoker Chew tobacco use (# tins/day): No Frequency of alcohol use: None Drug Abuse: None Family History: Reviewed & Not Pertinent Patient has homicidal ideation: No Psychiatric Medical History: Denies: Hx Depression Past Surgical History: Reports: Hx Orthopedic Surgery - RIGHT SHOULDER, Hx Tonsillectomy Physical Exam - Vital signs Vitals: Temp Pulse Resp BP Pulse Ox 98.4 F 88 16 126/88 H 98 04/09/20 10:18 04/09/20 10:18 04/09/20 10:18 04/09/20 10:18 04/09/20 10:18 Course - Re-evaluation Re-evalutation: 04/09/20 11:24 Patient currently receiving right lower extremity ultrasound. Patient denies any chest pain or shortness of breath. Reevaluate patient upon completion of the ultrasound. 04/09/20 18:27 Patient's ultrasound shows no signs of a DVT. Labs showed no concerning findings. Recommend patient follow-up with her hematology appointment on April 16. UA shows small leukocyte esterase. The patient reports no pain with urination or suprapubic pain. Can return to the ED for any worsening symptoms or development of new symptoms. Acknowledges and verbalizes understanding of in structions and plan. Is agreeable with plan. 04/09/20 18:30 - Vital Signs Vital signs: Temp Pulse Resp BP Pulse Ox 98.3 F 59 L 16 133/79 H 98 04/09/20 14:11 04/09/20 14:11 04/09/20 14:11 04/09/20 14:11 04/09/20 14:11 - Laboratory Result Diagrams: 04/09/20 10:40 04/09/20 10:40 Laboratory results interpreted by me: 04/09/20 04/09/20 10:40 10:40 Calcium 10.6 H AST 43 H ALT 41 H Ur Leukocyte Esterase SMALL H Discharge - Discharge Clinical Impression: Right leg swelling, Weakness Condition: Stable Disposition: HOME, SELF-CARE Instructions: Leg Pain Nonspecific ([facility]), Weakness ([facility]) Additional Instructions: You have been evaluated for right leg pain and swelling. Your labs show no concerning findings and the ultrasound of your lower extremities show no DVT. Re commend follow up with your COLLECTIONS OFFICER and to attend the hematology appointment you already have scheduled. Please return to the emergency department if you develop worsening symptoms or develop new symptoms. Referrals: KARLOS GUZMAN MD [ACTIVE STAFF] - Follow up as needed
--- NOTE | 2020-04-09 13:37 | RADIOLOGY REPORT (SQ) ---
EXAM DESCRIPTION: VENOUS BILATERAL LOWER IMAGES COMPLETED DATE/TIME: 04/09/2020 1:20 pm REASON FOR STUDY: Leg cramping rule out DVT COMPARISON: None. TECHNIQUE: Dynamic and static wylie scale and color images acquired of both lower extremity venous sy stems. Selected spectral images acquired with additional compression and augmentation maneuvers. Imag es stored on PACS. LIMITATIONS: None. FINDINGS: RIGHT LEG COMMON FEMORAL AND FEMORAL: Normal phasicity, compression and augmentation. No visualized echogenic m aterial on wylie scale. No defects on color images. POPLITEAL: Normal compression and augmentation. No visualized echogenic material on wylie scale. No de fects on color images. CALF VESSELS: Normal compression and augmentation. No visualized echogenic material on wylie scale. No defects on color image. GSV AND SSV: Normal compression. No visualized echogenic material on wylie scale. No defects on color images. ANY DEEP VENOUS INSUFFICIENCY: Not evaluated. ANY EVIDENCE OF POPLITEAL CYST: No. OTHER: No other finding. LEFT LEG COMMON FEMORAL AND FEMORAL: Normal phasicity, compression and augmentation. No visualized echogenic m aterial on wylie scale. No defects on color images. POPLITEAL: Normal compression and augmentation. No visualized echogenic material on wylie scale. No de fects on color images. CALF VESSELS: Normal compression and augmentation. No visualized echogenic material on wylie scale. No defects on color images. GSV AND SSV: Normal compression. No visualized echogenic material on wylie scale. No defects on color images. ANY DEEP VENOUS INSUFFICIENCY: Not evaluated. ANY EVIDENCE POPLITEAL CYST: No. OTHER: No other finding. IMPRESSION: NO EVIDENCE DVT OR SVT IN EITHER LEG. TECHNICAL DOCUMENTATION: JOB ID: [id number] 2010 [employer]- All Rights Reserved Reading location - IP/workstation name: [email or web address]
[2020-04-09 14:14] VITALS: BP 133/79
== END 2020-04-09 14:18 | disposition home or self-care (01) ==
LOC: ER 10:14
DX: O90.89 Other complications of the puerperium, not elsewhere classified (principal); M79.89 Other specified soft tissue disorders; R53.1 Weakness; Z88.2 Allergy status to sulfonamides
CPT/HCPCS: 36415; 80053; 81001; 83735; 84100; 85025; 93970; 99284

== ENCOUNTER 2020-09-03 15:35 | Emergency (ER) | payer BC, OTHER ==
[2020-09-03 15:40] VITALS: BP 128/72
--- NOTE | 2020-09-03 16:08 | ER Document Report ---
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 Patient states that she hit her forehead on the top of the car. denies any change in level consciousness, no vomiting. Patient is currently breast-feeding, has not had a menstrual cycle since she gave back in March 2020. reports that she did have 2 concussions in college. Witnessed event. Has not tried any [id number] medications. Denies fevers, chills, chest pain,palpitations, shortness of breath, dyspnea, vomiting, diarrhea, abdominal pain, hematuria,blurred vision, double vision, loss of vision, speech changes, LH, syncope, wheezing, ST, URI, neck pain, weakness, bowel or bladder dysfunction, saddle anesthesia, numbness or tingling in bilateral upper or lower extremities equally, muscle paralysis, weakness in bilateral upper or lower extremities equally or rash. Denies IV drug use. MEDICATIONS: I agree with the patient medications as charted by the RN. ALLERGIES: I agree with the allergies as charted by the RN. PAST MEDICAL HISTORY/PAST SURGICAL HISTORY: Reviewed and agree as charted by RN. SOCIAL HISTORY: Reviewed and agree as charted by RN. FAMILY HISTORY: No significant familial comorbid conditions directly related to patient complaint EXAM: Reviewed vital signs as charted by RN. REVIEW OF SYSTEMS:reviewed vital signs by RN CONSTITUTIONAL : Denies fever, chills, or sweats. Denies recent illness. EENT: Denies eye, ear, throat, or mouth pain or symptoms. Denies nasal or sinus congestion or discharge. Denies throat, tongue, or mouth swelling or difficulty swallowing. CARDIOVASCULAR: Denies chest pain. Denies palpitations or racing or irregular heart beat. Denies ankle edema. RESPIRATORY: Denies cough, cold, or chest congestion. Denies shortness of breath, difficulty breathing, or wheezing. GASTROINTESTINAL: Denies abdominal pain or distention. Denies nausea, vomiting, or diarrhea. Denies blood in vomitus, stools, or per rectum. Denies black, tarry stools. Denies constipation. GENITOURINARY: Denies difficulty urinating, painful urination, burning, frequency, blood in urine, or discharge. FEMALE GENITOURINARY: Denies vaginal bleeding, heavy or abnormal periods, irregular periods. Denies vaginal discharge or odor. MUSCULOSKELETAL: Denies back or neck pain or stiffness. Denies joint pain or swelling. SKIN: Denies rash, lesions or sores. HEMATOLOGIC : Denies easy bruising or bleeding. LYMPHATIC: Denies swollen, enlarged glands. NEUROLOGICAL: reports headach, dizziness. Denies confusion or altered mental status. Denies passing out or loss of consciousness. Denies lightheadedness. Denies weakness or paralysis or loss of use of either side. Denies problems with gait or speech. Denies sensory loss, numbness, or tingling. Denies seizures. PSYCHIATRIC: Denies anxiety or stress. Denies depression, suicidal ideation, or homicidal ideation. ALL OTHER SYSTEMS REVIEWED AND NEGATIVE. PHYSICAL EXAMINATION: GENERAL: Well-appearing, well-nourished and in no acute distress. HEAD: Atraumatic, normocephalic. EYES: Pupils equal round and reactive to light, extraocular movements intact, conjunctiva are normal. ENT: Nares patent, oropharynx clear without exudates. Moist mucous membranes. NECK: Normal range of motion, supple without lymphadenopathy LUNGS: Breath sounds clear to auscultation bilaterally and equal. No wheezes rales or rhonchi. HEART: Regular rate and rhythm without murmurs ABDOMEN: Soft, nontender, nondistended abdomen. No guarding, no rebound. No masses appreciated. Female : deferred Musculoskeletal: Normal range of motion, no pitting or edema. No cyanosis. NEUROLOGICAL: Cranial nerves grossly intact. Normal speech, normal gait. Normal sensory, motor exams. PERRLA, EOMI. Full motor and sensory function throughout. 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 Tongue midline. No pronator drift. No ataxia. Neck with APROM. Raises eyebrows. Strength is 5 out of 5 in bilateral upper and lower extremities equally.Speaks in full sentences. No weakness on one side. Romberg gait steady able to walk straight line. Able to recall 5 objects. PSYCH: Normal mood, normal affect. SKIN: Warm, Dry, normal turgor, no rashes or lesions noted. Dictation was performed using Duel recognition software - CONSTITUTIONAL Constitutional: DENIES: Fever, Chills - NEURO Neurology: REPORTS: Headache, Dizzinesss / Vertigo - REPRODUCTIVE Reproductive: DENIES: : Past Medical History - General Information source: Patient - Social History Smoking Status: Never Smoker Frequency of alcohol use: None Drug Abuse: None Family History: Reviewed & Not Pertinent Psychiatric Medical History: Denies: Hx Depression Past Surgical History: Reports: Hx Orthopedic Surgery - RIGHT SHOULDER, Hx Tonsillectomy Vertical Provider Document - CONSTITUTIONAL Agree With Documented VS: Yes Exam Limitations: No Limitations General Appearance: WD/WN - INFECTION CONTROL TRAVEL OUTSIDE OF THE [place] IN LAST 30 DAYS: No Course - Re-evaluation Re-evalutation: 09/03/20 16:13 Afebrile vital stable no distress. Nurses notes reviewed. discussed concussion protocol such as being woken up every hour by someone you live with, be asked orientation questions and to call 911 if any neurological changes occur such as speech changes, weakness on one side, unable to orient, nausea, vomiting, or severe headache, etc. pt verbalized understanding of this care and agreed to plan of care. discussed worrisome symptoms as well as reasons for return over what time frame. patient states understanding and is agreeable with plan. Advised to take off from work until this upcoming Wednesday. Rest, avoid any smart phone, computer, fine print reading, TV. Avoid strenuous activities. Advised to follow-up with primary care provider within the next 24 to 48 hours. Neurologist referral has been given if needed. After performing a Medical Screening Examination, I estimate there is LOW risk for ACUTE GLAUCOMA, TEMPORAL ARTERITIS, MENINGITIS, INCRANIAL HEMORRHAGE, or ISCHEMIC STROKE thus I consider the discharge disposition reasonable. I have reevaluated this patient multiple times and no significant life threatening changes are noted. The patient and I have discussed the diagnosis and risks, and we agree with discharging home with close follow-up with the understanding that symptoms and presentations can change. We also discussed returning to the Emergency Department immediately if new or worsening symptoms occur. We have discussed the symptoms which are most concerning (e.g., changing or worsening symptoms, new numbness or weakness, vomiting, fever) that necessitate immediate return. - Vital Signs Vital signs: Temp Pulse Resp BP Pulse Ox 98.2 F 67 20 128/72 H 100 09/03/20 15:39 09/03/20 15:39 09/03/20 15:39 09/03/20 15:39 09/03/20 15:39 Discharge - Discharge Clinical Impression: Closed head injury without loss of consciousness Condition: Stable Disposition: HOME, SELF-CARE Additional Instructions: Concussion You have suffered a concussion -- a temporary loss of certain brain functions due to a mild brain injury. The recovery is usually rapid and complete. The temporary problems occurring with a concussion can include loss of consciousness, dizziness, nausea, vomiting, and confusion. Repeat concussions can cause brain damage. In the future, avoid activities that will cause a blow to your head. Wear a helmet for sports such as snowboarding, biking, or skating. It's important that someone be with you for the first 24 hours. During this time, do not exercise or drive a vehicle. Do not take any pain medication stronger than acetaminophen unless prescribed by the physician. Any significant changes should be reported immediately to the physician. Signs of a problem may include: (1) Mental confusion (2) Incoordination or staggering (3) Repeated or forceful vomiting (4) Clear or bloody drainage from ear, mouth, or nose (5) Severe headache, not relieved by acetaminophen or prescribed pain medication (6) Failure to improve in 24 hours discussed concussion protocol such as being woken up every hour by someone you live with, be asked orientation questions and to call 911 if any neurological changes occur such as speech changes, weakness on one side, unable to orient, nausea, vomiting, or severe headache, etc. pt verbalized understanding of this care and agreed to plan of care. discussed worrisome symptoms as well as reasons for return over what time frame. patient states understanding and is agreeable with plan. Forms: Return to Work Referrals: DANE GOODMAN MD [NO LOCAL MD] - Follow up as needed MOHINDER ZAMORA DO [Primary Care Provider] - Follow up tomorrow
== END 2020-09-03 16:11 | disposition home or self-care (01) ==
LOC: ER 15:35
DX: S09.90XA Unspecified injury of head, initial encounter (principal); R42 Dizziness and giddiness; R11.0 Nausea; W22.09XA Striking against other stationary object, initial encounter
CPT/HCPCS: 99282

== ENCOUNTER → 2020-11-14 | Outpatient (CLI) | payer BC ==
[~2020-11-14] MED LIST: COVID-19 VACCINE (PFIZER)/PF 30 MCG/0.3 ML VIAL IM ONE; EPINEPHRINE INJ/PF 1 MG/1 ML AMPULE IM PRN
== END ==
LOC: EMPHEALTH 07:42
PROVIDERS: ATTEND Internal Medicine
DX: Z23 Encounter for immunization (principal)
CPT/HCPCS: 91300

== ENCOUNTER → 2020-12-05 | Outpatient (CLI) | payer BC ==
--- OUTSIDE RECORDS SUMMARY | 2020-12-05 08:33 | XMS REPORT ---
:1995 Author Organization [email or web address] Address [facility] [place] [address] [place] [id number] Care Team Providers Name Role Phone Unavailable Unavailable Unavailable Allergies, Adverse Reactions, Alerts Allergy Allergy Status Severity Reaction(s) Onset Inactive Treating C omments Name Type Date Date Clinician Latex Allergy to Active 2014-04 00:00:0 0 Sulfa Allergy to Active Moderate Anaphylaxis (Sulfonam substance to severe aide Antibioti cs) Medications This patient has no known medications. Problems Condition Condition Condition Status Onset Resolution Last Treatin g Comments Name Details Category Date Date Treatment Clinician Date Disorder of Disorder of Problem Active shoulder Shoulder 05-10 00:00: 00 Procedures Procedure Date / Time Performed Performing Clinician Shilo diaz Tonsillectomy 2016-11-15 00:00:00 Results This patient has no known results. Assessments Condition Name Status Diagnosis Date Treating Clinici an Achilles tendinitis Active 2019-09-26 17:10:30 Encounters Start End Encounter Admission Attending Care Care Encounter Date/Time Date/Time Type Type Clinicians Facility Department ID 2019-09-25 2019[id number]:00 VIKI Perez: [facility] [id number] [place] [phone], Ph. Social History Smoking Status Start Date Stop Date Never Smoker Vital Signs Vital Name Observation Time Observation Value Comments Height 2019-09-25 00:00:00 68 [in_i] Hospital Discharge Instructions 1. Achilles tendinitis Discussion Note: None recorded. Patient educational handouts: No information available.
== END ==
LOC: EMPHEALTH 08:21
PROVIDERS: ATTEND Internal Medicine
DX: Z23 Encounter for immunization (principal)
CPT/HCPCS: 91300